=== PATIENT | female | born 1965 | race Caucasian/White ===

== ENCOUNTER 2023-12-26 05:49 | Day surgery (SDC) | payer OTHER, SELFPAY ==
[2023-11-30 10:25] VITALS: BMI 34.9
[2023-12-10 11:28] VITALS: BMI 34.8
[2023-12-26 06:08] VITALS: BP 141/96; PULSE 74; RESP 16; TEMP 36.9; O2SAT 100; BMI 34.6
--- NOTE | 2023-12-26 06:59 | WPDANESEPPF ---
Anes - Initial Pre Proc Eval Procedure: Operation Date: 12/26/23 07:30 Proposed Procedures p Colonoscopy - Wil Fiore MD Date/Time: 12/26/23 06:59 Surgeon: Wil Fiore MD Pre Op Diagnosis: Neoplasm screening Patient Data Age: 58 Gender: F Height: 1.65 m Weight: 94.4 kg Last Vital Signs Temp 36.9 C 12/26/23 06:08 Pulse 74 12/26/23 06:08 Resp 16 12/26/23 06:08 BP 141/96 H 12/26/23 06:08 Pulse Ox 100 12/26/23 06:08 O2 Del Method Room Air 12/26/23 06:08 Allergies Allergy/AdvReac Type Severity Reaction Status Date / Time Penicillins Allergy Unknown Hives Verified 12/26/23 06:09 Sulfa (Sulfonamide Allergy Unknown Hives Verified 12/26/23 06:09 Antibiotics) Home Medications Medication Instructions Recorded Confirmed Type ergocalciferol (vitamin D2) 1,250 1,250 mcg PO WEEKLY 12/10/23 12/26/23 History mcg (50,000 unit) capsule Patient hx anesthesia problems: none Family hx anesthesia problems: none Results Review: All pre-operative results and documents have been reviewed as part of the pre-operative evaluation. [facility] Social History Social History Smoking status: Never smoker Alcohol intake: current Substance use: never Substance use type: does not use Living arrangements: with family Spiritual care concerns: No Anes - Eval Final PreProcedure Day of Procedure 12/26/23 06:59 Patient weight: obese Heart: regular rate and rhythm Lungs: clear to auscultation Airway: Mallampati scale class II Neurological: alert and oriented Last oral intake: >/= 8 hours ASA classification: II Emergent: no Anesthetic plan: proceed Anesthesia type and monitoring: general GIVS and standard monitoring Results Review: All pre-operative results and documents have been reviewed as part of the pre-operative evaluation. Informed Consent: The patient's anesthetic plan and its attendant risks and benefits were discussed with the patient/family/POA. Questions were solicited and answers provided to the satisfaction of the patient/family/POA.
[2023-12-26] MEDS: LACTATED RINGERS 1,000 ML 150 ML IV CONT (07:13)
--- NOTE | 2023-12-26 07:20 | PM.HPGS ---
History of Present Illness History of Present Illness Consent: Risks, benefits, and alternatives have been discussed and questions answered. Patient agrees to proceed with procedure. Chief complaint: Neoplasm screening Narrative: Geraldine Randolph is a 58 year old female presents for screening colonoscopy. Patient's current weight appetite and bowel movements are normal. Patient denies abdominal pain. She has had no bleeding. Family history is noncontributory. Review of Systems Review of Systems: Review of systems is noncontributory. [facility] Social History Social History Smoking status: Never smoker Alcohol intake: current Substance use: never Substance use type: does not use Living arrangements: with family Spiritual care concerns: No Meds Home Medications and Allergies Home Medications Medication Instructions Recorded Confirmed Type ergocalciferol (vitamin D2) 1,250 1,250 mcg PO WEEKLY 12/10/23 12/26/23 History mcg (50,000 unit) capsule Allergies Allergy/AdvReac Type Severity Reaction Status Date / Time Penicillins Allergy Unknown Hives Verified 12/26/23 06:09 Sulfa (Sulfonamide Allergy Unknown Hives Verified 12/26/23 06:09 Antibiotics) Vital Signs Vital Signs - 24 hr 12/26/23 06:08 Temperature 98.5 F Pulse Rate 74 Respiratory Rate 16 Blood Pressure 141/96 H Pulse Oximetry 100 Oxygen Delivery Room Air Exam Narrative: Physical exam reveals patient to be alert. Vital signs stable. HEENT exam is unremarkable. Patient is anicteric. Lungs are clear to auscultation and percussion. Heart is without murmur or extra sounds. Abdomen bowel sounds are present soft nontender with no organomegaly. Digital external rectal exam is normal. Assessment and Plan Assessment and plan (1) Encounter for screening colonoscopy: Code(s): Z12.11 - Encounter for screening for malignant neoplasm of colon Status: Acute Assessment and Plan: Patient presents today for screening colonoscopy. Patient appears to be at average risk for colon polyps. Plan further recommendations after endoscopy.
[2023-12-26] MEDS: SIMETHICONE ORAL SUSPENSION 20 MG/0.3 ML 30 ML BOTTLE 0.6 ML IRRIGATION (07:35)
[2023-12-26 07:43] VITALS: BP 128/89; PULSE 59; RESP 16; O2SAT 99
[2023-12-26 07:53] VITALS: BP 113/69; PULSE 53; RESP 20; O2SAT 99
[2023-12-26 08:03] VITALS: BP 125/82; PULSE 59; RESP 20; O2SAT 99
--- NOTE | 2023-12-26 11:16 | WPDANESPN ---
Anes - Prog Note Post-Op Date/Time: 12/26/23 11:16 Cardiovascular status: normal Respiratory status: normal Airway patency: baseline Mental status: baseline Post-Op hydration status: normal Vital Signs: Last Vital Signs Temp 36.9 C 12/26/23 06:08 Pulse 59 L 12/26/23 08:03 Resp 20 12/26/23 08:03 BP 125/82 12/26/23 08:03 Pulse Ox 99 12/26/23 08:03 O2 Del Method Room Air 12/26/23 08:03 Pain Score (VAS): 0 I/O: Intake & Output 12/25/23 12/26/23 12/26/23 23:59 07:59 15:59 Intake Total 400 Balance 400 Post-procedural complaints: none Patient Feedback: Patient satisfied with anesthetic care. Other Findings: Patient vital signs back to baseline. Patient denies nausea and vomiting. Patient's pain under control. Patient OK for discharge.
== END 2023-12-26 08:16 | disposition home or self-care (01) ==
PROVIDERS: PCP Obstetrics & Gynecology Gynecology; Visit Provider Internal Medicine Gastroenterology
PROC: 0DJD8ZZ Inspection of Lower Intestinal Tract, Via Natural or Artificial Opening Endoscopic (ICD-10-PCS; CPT 45378; principal; 2023-12-26 07:30)
DX: Z12.11 Encounter for screening for malignant neoplasm of colon (principal); K57.30 Diverticulosis of large intestine without perforation or abscess without bleeding
CPT/HCPCS: 45378

== ENCOUNTER 2024-03-04 12:08 | Outpatient (CLI) | payer OTHER, SELFPAY ==
--- NOTE | ~2024-03-04 | MM_ITS ---
EXAMINATION: MM screening cristofer BI w january HISTORY: Screening mammogram TECHNIQUE: Craniocaudal and mediolateral oblique 3-D tomosynthesis images were obtained and synthetic 2-D images were generated. CAD analysis was submitted and interpreted. COMPARISON: No prior mammogram is available for comparison at this institution. BREAST PARENCHYMAL COMPOSITION: FINDINGS: Approximately 4.5 x 8 mm circumscribed opacity is noted in the medial subareolar area of th e left breast. Otherwise no suspicious mass or architectural distortion, malignant calcification, skin thickening or retraction of either breast is detected. IMPRESSION: 1. 4.5 x 8 mm medial left subareolar breast mass 2. Diagnostic left mammogram and targeted left breast ultrasound examination are recommended. BI-RADS Category 0: Incomplete: Needs additional imaging evaluation. Reviewed, dictated and finalized at location A. IMPRESSION: 1. 4.5 x 8 mm medial left subareolar breast mass 2. Diagnostic left mammogram and targeted left breast ultrasound examination ar e recommended. BI-RADS Category 0: Incomplete: Needs additional imaging evaluation.
== END 2024-03-04 12:09 ==
PROVIDERS: PCP Family Medicine; Visit Provider Obstetrics & Gynecology Gynecology
DX: Z12.31 Encounter for screening mammogram for malignant neoplasm of breast (principal)
CPT/HCPCS: 77063; 77067

== ENCOUNTER 2024-04-08 07:53 | Outpatient (CLI) | payer OTHER, SELFPAY ==
--- NOTE | ~2024-04-08 | MMUS_ITS ---
EXAMINATION: MM diagnostic cristofer LT w january, US breast LT limited HISTORY: 4.5 x 8 mm medial left subareolar breast mass reported on March 04, 2024 screening mammogram TECHNIQUE: Additional 3-D tomosynthesis images of the left breast were performed and synthetic 2-D im ages were generated. CAD analysis was submitted and interpreted. High resolution left subareolar [address] st ultrasound was performed. COMPARISON: March 04, 2024 bilateral screening mammogram FINDINGS: MAMMOGRAPHIC FINDINGS: Approximately 4 x 6.5 mm medial subareolar left mammographic circumscribed opacity is again noted. ULTRASOUND: 3:00 subareolar area: Approximately 1.8 x 2.2 x 2.6 mm mildly irregular hypoechoic area is noted, wit hout posterior shadowing or internal vascularity on color flow imaging. Six-month follow-up ultrasoun d of this location is recommended. There is a 9:00 dilated sonolucent duct which likely accounts for the mammographic opacity noted in t he lateral subareolar area. IMPRESSION: 1. Probably benign findings 2. Six-month follow-up subareolar breast ultrasound examination is recommended with attention to 3:00 subareolar area particularly BI-RADS category 3, probably benign findings. Reviewed, dictated and finalized at location A. IMPRESSION: 1. Probably benign findings 2. Six-month follow-up subareolar breast ultrasound examination is recommended with attention to 3:00 subareolar area particularly BI-RADS category 3, probably benign findings.
== END 2024-04-08 07:54 ==
LOC: MICIMG 07:54
PROVIDERS: PCP Family Medicine; Visit Provider Obstetrics & Gynecology Gynecology
DX: R92.8 Other abnormal and inconclusive findings on diagnostic imaging of breast (principal)
CPT/HCPCS: 76642; 77061; 77065; G0279

== ENCOUNTER 2024-04-17 13:14 | Outpatient (CLI) | payer OTHER, SELFPAY ==
--- NOTE | ~2024-04-17 | DEXA_ITS ---
Bone Density Report Name: TRINA HARRISON) Rosanna Age: 59 Sex: Female Ethnicity: White Date of : 1965 Indication: postmenopausal; screening for osteoporosis; Referring Provider: RICHIE SALCEDO Study: Bone densitometry was performed. Exam Date: April 17, 2024 Accession number: [id number] Bone Density: Region BMD T-score Z-score Classification AP Spine (L1-L4) 1.103 0.5 1.9 Normal Femoral Neck (Left) 0.799 -0.5 0.8 Normal Total Hip (Left) 1.021 0.6 1.5 Normal Femoral Neck (Right) 0.816 -0.3 0.9 Normal Total Hip (Right) 1.044 0.8 1.7 Normal Total Hip Mean 1.033 0.7 1.6 Normal World Health Organization criteria for BMD impression classify patients as: Normal (T-score at or above -1.0), Osteopenia (T-score between -1.0 and -2.5), or Osteoporosis (T-score at or below -2.5). 10-year Fracture Risk: FRAX not reported because: All T-scores for Spine Total, Hip Total, Femoral Neck at or above -1.0 Clinical Information Provided by Patient: Has used the following medications: Vitamin D, LEVOTHYROXINE Patient maximum height was 65.0 Menopause Age: 52 No regular weight bearing exercise Drinks caffeinated beverages Onset of menses at age 14 Number of children 3 Missed period for more than 6 months in a row Impression: The patient has normal bone mass. Discussion: BONE DENSITY IS ABOVE THE MINIMUM DESIRABLE LEVEL AT ALL SKELETAL SITES TESTED. This patient?s bone mineral density is above the minimum desirable level (T-score -1.0 or better) at all sites measured. The patient should follow a healthful lifestyle (good nutrition with adequate calcium and vitamin D, and appropriate weight-bearing exercise). Follow-Up: Consider repeating this study in 5 years or sooner if there is some new clinical indication. Reported by: SYDNEE on 04/17/2024 1:46:00 PM. Reviewed, dictated and finalized at location A.
== END 2024-04-17 13:15 ==
LOC: MICIMG 13:15
PROVIDERS: PCP Family Medicine; Visit Provider Obstetrics & Gynecology Gynecology
DX: Z78.0 Asymptomatic menopausal state (principal)
CPT/HCPCS: 77080

== ENCOUNTER 2024-10-13 08:57 | Outpatient (CLI) | payer OTHER, SELFPAY ==
--- NOTE | ~2024-10-13 | US_ITS ---
EXAMINATION TYPE: US breast LT limited COMPARISON: 04/08/2024 REASON FOR STUDY: 6 month follow-up TECHNIQUE: Targeted sonographic evaluation of the subareolar left breast was performed. INTERPRETATION: At the 3:00 position left periareolar region, there is a stable 2 mm hypoechoic round masslike struct ure. A focal dilated duct noted the left breast 9:00 position, without evidence of intraductal mass. IMPRESSION: Stable 2 mm hypoechoic structure at the left 3:00 position, periareolar region. Stable focal dilated duct 9:00 position left breast. BI-RADS CATEGORY: BI-RADS 2: Benign Reviewed, dictated and finalized at location . [employer]
== END 2024-10-13 08:58 | disposition home or self-care (01) ==
PROVIDERS: PCP Family Medicine; Visit Provider Obstetrics & Gynecology Gynecology
DX: R92.8 Other abnormal and inconclusive findings on diagnostic imaging of breast (principal)
CPT/HCPCS: 76642

== ENCOUNTER 2025-03-05 10:25 | Outpatient (CLI) | payer OTHER, SELFPAY ==
--- NOTE | ~2025-03-05 | MM_ITS ---
EXAMINATION: MM screening cristofer BI w january HISTORY: Screening TECHNIQUE: Craniocaudal and mediolateral oblique 3-D tomosynthesis images were obtained and synthetic 2-D images were generated. CAD analysis was submitted and interpreted. COMPARISON: 03/04/2024 BREAST PARENCHYMAL COMPOSITION: There are scattered areas of fibroglandular density. FINDINGS: There is no evidence of suspicious mass, calcification, or architectural distortion to sugg est malignancy in either breast. There has been no suspicious interval change. IMPRESSION: 1. No mammographic evidence of malignancy. 2. Recommend routine screening mammography in one year. BI-RADS Category 1: Negative Reviewed, dictated and finalized at location A.
== END 2025-03-05 10:26 | disposition home or self-care (01) ==
LOC: MICIMG 10:26
PROVIDERS: PCP Obstetrics & Gynecology Gynecology; Visit Provider Family Medicine
DX: Z12.31 Encounter for screening mammogram for malignant neoplasm of breast (principal)
CPT/HCPCS: 77063; 77067